=== PATIENT | male | born 1950 | race Caucasian/White ===

== ENCOUNTER 2018-02-07 14:00 | Outpatient (RCR) | payer MEDICARE, OTHER, SELFPAY ==
--- NOTE | 2017-11-16 12:02 | HP.PTEVAL_ITS ---
Patient's Visit Information LAURENT NEELY is a 66 year old M referred to Physical Therapy by Valentin Robertson MD with a diagnosis of Lumbar spinal stenosis, scoliosis. Date of Evaluation: 11/10/17 Physical Therapist: Clyde Ospina - Visit Plan Frequency: 2x /Week Duration: 4-6 Weeks Plan: Start with TA stabilization in aquatic setting. Progress HEP. Pt. had no directional preference this date, but trial flexion further next visit. Add in HS stretcing and hip flexor stretching as well. - Subjective Subjective: Pt. is here today for his initial evaluation with diagnosis of lumbar spinal stenosis. Pt. reports having back pain for a number of years, but recently he has been having increased symptoms. Pt. denies N/T in either LE. Pt. has no changes in B/B. Pt. did have an xray showing a marked amount of scoliosis and spinal stenosis. Pt. is now having to sleep in his reclining chair to start the night then is able to lie in bed. Pt. reports having increased pain getting out of bed in the morning and increased pain throughout the day. He has trialed ice and heat without positive results. Pt. reports no new muscle weakness in either LE as well. Pt. does complete a self prescribed pool exercises and light cardio exercises. Pt. is hopeful to reduce his symptoms in order to get back to all recreational activities with limitations. - Pain Lumbar spine Pain Intensity (Out of 10): 4 Pain Intensity Range: 2, 6 - Objective POSTURE: Pt. is over wt. Pt. has generalized flexed posture with FH. Pt. has no lateral shift, but does have lateral trunk lean with shoulder correction. Pt. has anterior tilt of pelvis as well. PALPATION: Pt. has increase increased pain with palpation of lumbar erector spinea generally throughout. Pt. has no pain in piriformis and no pain throughout bilateral iliac crests. Pt. has hypomobility with spring testing throughout lumbar spine, increased pain throughout as well. NEUROLOGICAL: Pt. has normal sensation of bilateral LEs to light and sharp touch. Pt. has normal 2+ patellar and achilles DTR bilaterally. Pt. is able to rise on heels and toes with out LOB, but does use balance aid. ROM: LUMBAR SPINE: flexion- mod loss increase NW, ext mod/max loss increase NW, SB R min loss increase NW, SB L min loss increase NW, rotation min loss bilat increase NW. Pt. has normal hip ROM bilaterally without increase in symptoms. Pt. has tightness noted throughout bilateral HS and hip flexor bilaterally. MMT : RLE- ankle 5/5 throughout; knee-ext 5-/5, flexionx 5-/5; hip- flexion 4/5, abd 4/5, ext 4/5. LLE- shiv 5/5 throughout; knee- ext 5-/5, flexion 5-/5, hip- flexion 4/5, abd 4/5, ext 4/5. Core strength- poor. GAIT: Pt. ambulates with generalized flexed posture, with increased lateral lean to L side during L stance phase. Pt. has increased pain with attempted to increase erect posture. STAIRS: Pt. is able to complete with reciprocal pattern but heavily uses BHR to complete. - Special Tests L/S Slump test left side: Negative L/S Slump test right side: Negative L/S Left Straight Leg Raise: Negative L/S Right Straight Leg Raise: Negative Lumbar Standing: Flexion - Mechanical Response: No effect Lumbar Standing: Flexion - Symptoms During Testing: Increases Lumbar Standing: Flexion - Symptoms After Testing: No worse Lumbar Standing: Extension - Mechanical Response: No effect Lumbar Standing: Extension - Symptoms During Testing: Increases Lumbar Standing: Extension - Symptoms After Testing: No worse Lumbar Standing: Right Side Glides - Mechanical Response: No effect Lumbar Standing: Right Side [place] - Symptoms During Testing: Increases Lumbar Standing: Right Side [place] - Symptoms After Testing: No worse Lumbar Standing: Left Side [place] - Mechanical Response: No effect Lumbar Standing: Left Side [place] - Symptoms During Testing: Increases Lumbar Standing: Left Side [place] - Symptoms After Testing: No worse Lumbar Lying: Flexion - Mechanical Response: No effect Lumbar Lying: Flexion - Symptoms During Testing: No effect Lumbar Lying: Flexion - Symptoms After Testing: No effect Lumbar Static: Slouched Sit - Mechanical Response: No effect Lumbar Static: Slouched Sit - Symptoms During Testing: No effect Lumbar Static: Slouched Sit - Symptoms After Testing: No effect Lumbar Static: Sitting Erect - Mechanical Response: No effect Lumbar Static: Sitting Erect - Symptoms During Testing: Increases Lumbar Static: Sitting Erect - Symptoms After Testing: No worse - Goals Goal 1:: Pt. to be I with HEP. Goal Time Frame: 4-6 Weeks Goal 2:: Pt. to have increased core and hip strength by 1/2 grade of all effected musculature to redcue stress on lumbar spine. Goal Time Frame: 4-6 Weeks Goal 3:: Pt. to have increased lumbar spine ROM by 25% in all directions without increase in symptoms. Goal Time Frame: 4-6 Weeks Goal 4:: Pt. to ambulate unlimited distances without increase in symptoms allowing for increased tolerance to all functional mobility. Goal Time Frame: 4-6 Weeks Goal 5:: Pt. sleep throughout the night without increase in symptoms allowing for icnreased quality of life. Goal Time Frame: 4-6 Weeks Goal 6:: Pt. to demonstrate improve posture throughout therapy session indicating increased postural awareness. Goal Time Frame: 4-6 Weeks - Rehabilitation Potential Physical Therapy Diagnosis: Pt. has signs and symptoms consistent with lumbar spinal stenosis. Pt. has increased pain with all end range motions of lumbar spine. Pt. has reduced core strength and hip strength. Pt. would benefit from PT to increase B hip and core strength, postural re-education/control and stratagies to reduce stress on lumbar spine with all fucntional mobility. Rehabilitation Potential: Good - Anticipated Interventions Patient/Client Instruction: Educate patient on: Condition, Plan of Care, Risk Factors, Benefits of Fitness Program For the Purpose of:: To improve health and function, To foster healthy habits, To improve decision making, To facilitate caregiver knowledge, To improve self management, To prevent re-injury, To improve ability to perform tasks related to life management, To improve tolerance to ADL's Therapeutic Exercise to Include: Strength training, Power training, Endurance training, Body mechanics, Postural training, Flexibilty training, In an aquatic setting, Passive ROM, Active ROM, Dynamic Lumbar Stabilization, Maddie Exercises For the Purpose of:: To decrease pain, To increase ROM, To improve nutrient delivery to tissue, To increase oxygenation perfusion, To improve muscle performance and motor function, To improve ability to perform ADL's, To increase tolerance to activity/condition/position, To improve gait and locomotor functions, To improve health of tissue, To decrease soft tissue restriction, To increase flexibility/ROM Manual Therapy Techniques to Include: Mobilization, Passive ROM, Functional dry needling, Soft tissue mobilization For the Purpose of:: To decrease pain, To decrease swelling/inflammation, To increase ROM IF ES: Yes Cryotherapy (ice pack, ice massage): Yes Thermo therapy (hot pack): Yes Ultrasound (thermal/non thermal): Yes For the Purpose of:: To decrease pain, To decrease swelling/inflammation, To increase ROM Thank you for the opportunity to evaluate your patient. For Medicare and Medicare HMO plans, please review the plan of care and approve it. It will need to be FAXED BACK to us at [phone] for Medicare purposes. Please let me know if there are questions or concerns regarding this plan of care. Physician Signature: Date:
--- NOTE | 2017-12-19 08:11 | HP.PTREVAL_ITS ---
Valentin Robertson MD, It has been my pleasure to treat LAURENT NEELY over the last 10 visits for Lumbar spinal stenosis, scoliosis. Please see the progress note below for an update on the physical therapy plan of care! Subjective: Pt. reports I am doing better, I still get some pain with longer driving, but overall improved. He reprots being 75% better overall. Pt. is doing HEP at home and is progressing with aquatic therapy. Pt. denies N/T in either LE. Objective/Function: Lumbar ROM- flexion min loss NE, ext mod loss increase NW, SB min loss to L, mod loss to R NE, rotation mod loss bilat increase NW. MMT: RLE- 5/5 throughout, except hip- flexion 4+/5, abd 4+/5 ext 4/5 Bilaterally. Pt. has poor+ core strength. He does report having difficulty with sleeping, having to start in his reclining chair then go to bed to increase better tolerance. He is most conserned with his ability to tolerate driving. He is able to drive 1-2 hours without symptoms, but longer distances bother him. Pt. has flexed posture and L lean with walking, but is able to increase his erect posture. Pt. denies N/T in either LE. Pt. would benefit from further PT to progress core strengthening, increase erect posture. Plan Plan: Pt. to be seen x4 visits in pool x1 week to progress to HEP, then x2 visits on land to progress gym exercises. Goals Goal 1:: Pt. to be I with HEP. Goal Time Frame: 4-6 Weeks Goal Progress: Progressing Goal 2:: Pt. to have increased core and hip strength by 1/2 grade of all effected musculature to redcue stress on lumbar spine. Goal Time Frame: 4-6 Weeks Goal Progress: Progressing Goal 3:: Pt. to have increased lumbar spine ROM by 25% in all directions without increase in symptoms. Goal Time Frame: 4-6 Weeks Goal Progress: Progressing Goal 4:: Pt. to ambulate unlimited distances without increase in symptoms allowing for increased tolerance to all functional mobility. Goal Time Frame: 4-6 Weeks Goal Progress: Progressing Goal 5:: Pt. sleep throughout the night without increase in symptoms allowing for icnreased quality of life. Goal Time Frame: 4-6 Weeks Goal Progress: Progressing Goal 6:: Pt. to demonstrate improve posture throughout therapy session indicating increased postural awareness. Goal Time Frame: 4-6 Weeks Goal Progress: Progressing Anticipated Interventions Patient/Client Instruction: Educate patient on: Condition, Plan of Care, Risk Factors, Benefits of Fitness Program For the Purpose of:: To improve health and function, To foster healthy habits, To improve decision making, To facilitate caregiver knowledge, To improve self management, To prevent re-injury, To improve ability to perform tasks related to life management, To improve tolerance to ADL's Therapeutic Exercise to Include: Strength training, Power training, Endurance training, Body mechanics, Postural training, Flexibilty training, In an aquatic setting, Passive ROM, Active ROM, Dynamic Lumbar Stabilization, Maddie Exercises For the Purpose of:: To decrease pain, To increase ROM, To improve nutrient delivery to tissue, To increase oxygenation perfusion, To improve muscle performance and motor function, To improve ability to perform ADL's, To increase tolerance to activity/condition/position, To improve gait and locomotor functions, To improve health of tissue, To decrease soft tissue restriction, To increase flexibility/ROM Manual Therapy Techniques to Include: Mobilization, Passive ROM, Functional dry needling, Soft tissue mobilization For the Purpose of:: To decrease pain, To decrease swelling/inflammation, To increase ROM IF ES: Yes Cryotherapy (ice pack, ice massage): Yes Thermo therapy (hot pack): Yes Ultrasound (thermal/non thermal): Yes For the Purpose of:: To decrease pain, To decrease swelling/inflammation, To increase ROM Please do not hesitate to contact me at [phone] by phone or Fax: if you have questions or concerns regarding this new plan of care! Sincerely, Clyde Ospina
--- NOTE | 2018-02-20 14:44 | HP.PTREVAL_ITS ---
Valentin Robertson MD, It has been my pleasure to treat LAURENT NEELY over the last 16 visits for Lumbar spinal stenosis, scoliosis. Please see the progress note below for an update on the physical therapy plan of care! Subjective: Pt. reports being 90% better overall. He is to have another injection later this month. He is driving without increase in symptoms. Pt. reports being I with land and water exercises. Objective/Function: ROM: flexion min loss NE, ext mod loss increase NW, SB min loss bilat NE, rotation min loss NE bilat. Pt. has tightness in B HS, but no increase in back pain. MMT: BLEs- 5/5 throughout, except 5-/5 hip abd and hip ext bilat. Core strength- fair-. Pt. ambulates without AD without adverse r eaction. Pt. is independent with all exercises both for land and aquatics now. Pt. is to trial exercises on own and follow up with PT if needed. Plan Plan: Pt. to trial exercsises on own for 2 weeks and follow up with PT if needed. I will DC case if I have not heard from patient in a few weeks. Goals Goal 1:: Pt. to be I with HEP. Goal Time Frame: 4-6 Weeks Goal Progress: Goal Met Goal 2:: Pt. to have increased core and hip strength by 1/2 grade of all effected musculature to redcue stress on lumbar spine. Goal Time Frame: 4-6 Weeks Goal Progress: Goal Met Goal 3:: Pt. to have increased lumbar spine ROM by 25% in all directions without increase in symptoms. Goal Time Frame: 4-6 Weeks Goal Progress: Goal Met Goal 4:: Pt. to ambulate unlimited distances without increase in symptoms allowing for increased tolerance to all functional mobility. Goal Time Frame: 4-6 Weeks Goal Progress: Goal Met Goal 5:: Pt. sleep throughout the night without increase in symptoms allowing for icnreased quality of life. Goal Time Frame: 4-6 Weeks Goal Progress: Goal Met Goal 6:: Pt. to demonstrate improve posture throughout therapy session indicating increased postural awareness. Goal Time Frame: 4-6 Weeks Goal Progress: Goal Met Anticipated Interventions Patient/Client Instruction: Educate patient on: Condition, Plan of Care, Risk Factors, Benefits of Fitness Program For the Purpose of:: To improve health and function, To foster healthy habits, To improve decision making, To facilitate caregiver knowledge, To improve self management, To prevent re-injury, To improve ability to perform tasks related to life management, To improve tolerance to ADL's Therapeutic Exercise to Include: Strength training, Power training, Endurance training, Body mechanics, Postural training, Flexibilty training, In an aquatic setting, Passive ROM, Active ROM, Dynamic Lumbar Stabilization, Maddie Exercises For the Purpose of:: To decrease pain, To increase ROM, To improve nutrient delivery to tissue, To increase oxygenation perfusion, To improve muscle performance and motor function, To improve ability to perform ADL's, To increase tolerance to activity/condition/position, To improve gait and locomotor functions, To improve health of tissue, To decrease soft tissue restriction, To increase flexibility/ROM Manual Therapy Techniques to Include: Mobilization, Passive ROM, Functional dry needling, Soft tissue mobilization For the Purpose of:: To decrease pain, To decrease swelling/inflammation, To increase ROM IF ES: Yes Cryotherapy (ice pack, ice massage): Yes Thermo therapy (hot pack): Yes Ultrasound (thermal/non thermal): Yes For the Purpose of:: To decrease pain, To decrease swelling/inflammation, To increase ROM Please do not hesitate to contact me at [phone] by phone or Fax: if you have questions or concerns regarding this new plan of care! Sincerely, Clyde Ospina
--- NOTE | 2018-05-01 16:58 | HP.PT.NRP ---
HP - Discharge Summary (1) - Patient Information LAURENT NEELY was seen in my office for initial evaluation on 11/10/17. The following Plan of Care was established for this patient: Initial Frequency: 2x /Week Initial Duration: 4-6 Weeks - Anticipated Interventions Patient/Client Instruction: Educate patient on: Condition, Plan of Care, Risk Factors, Benefits of Fitness Program For the Purpose of:: To improve health and function, To foster healthy habits, To improve decision making, To facilitate caregiver knowledge, To improve self management, To prevent re-injury, To improve ability to perform tasks related to life management, To improve tolerance to ADL's Therapeutic Exercise to Include: Strength training, Power training, Endurance training, Body mechanics, Postural training, Flexibilty training, In an aquatic setting, Passive ROM, Active ROM, Dynamic Lumbar Stabilization, Maddie Exercises For the Purpose of:: To decrease pain, To increase ROM, To improve nutrient delivery to tissue, To increase oxygenation perfusion, To improve muscle performance and motor function, To improve ability to perform ADL's, To increase tolerance to activity/condition/position, To improve gait and locomotor functions, To improve health of tissue, To decrease soft tissue restriction, To increase flexibility/ROM Manual Therapy Techniques to Include: Mobilization, Passive ROM, Functional dry needling, Soft tissue mobilization For the Purpose of:: To decrease pain, To decrease swelling/inflammation, To increase ROM IF ES: Yes Cryotherapy (ice pack, ice massage): Yes Thermo therapy (hot pack): Yes Ultrasound (thermal/non thermal): Yes For the Purpose of:: To decrease pain, To decrease swelling/inflammation, To increase ROM This patient was last seen in our office 02/07/18. Pertinent comments regarding their Physical therapy will appear below: Pt. was treated for his low back pain. Pt. was treated in aquatic setting and progressed to land exercises. Pt. had reported being 90% better overall. Pt. was to trial exercises on own and follow up with PT if needed. Pt. has not been seen in ~ 3 months and willbe DC from PT at this point in time. At this point I will be discontinuing this patient from physical therapy. I would be happy to see this patient again in the future if found appropriate by the physician. Thank you! Clyde Ospina, JORDI
== END 2018-02-07 19:00 | disposition home or self-care (01) ==
LOC: PT 14:00
PROVIDERS: Family Provider Preventive Medicine Occupational Medicine; PCP Preventive Medicine Occupational Medicine; Visit Provider Specialist
DX: M41.9 Scoliosis, unspecified (principal); M48.07 Spinal stenosis, lumbosacral region
CPT/HCPCS: 97110; 97113; 97162; 97530

== ENCOUNTER → 2018-03-23 22:19 | Outpatient (CLI) | payer MEDICARE, OTHER, SELFPAY | PROVIDERS: Family Provider Preventive Medicine Occupational Medicine; PCP Preventive Medicine Occupational Medicine; Visit Provider Internal Medicine Pulmonary Disease | DX: G47.33 Obstructive sleep apnea (adult) (pediatric) (principal) | CPT/HCPCS: 95810 ==

== ENCOUNTER → 2018-05-01 21:01 | Outpatient (CLI) | payer MEDICARE, OTHER, SELFPAY | DX: G47.33 Obstructive sleep apnea (adult) (pediatric) (principal) | CPT/HCPCS: 95811 ==

== ENCOUNTER 2019-04-08 12:00 | Outpatient (RCR) | payer MEDICARE, OTHER, SELFPAY | END 2019-04-09 23:59 | LOC: NS 12:00 | PROVIDERS: Visit Provider Preventive Medicine Occupational Medicine | DX: Z71.3 Dietary counseling and surveillance (principal); N18.3 Chronic kidney disease, stage 3 (moderate); E66.9 Obesity, unspecified; Z68.41 Body mass index [BMI] 40.0-44.9, adult | CPT/HCPCS: 97802; 97803 ==

== ENCOUNTER 2019-04-25 15:00 | Outpatient (RCR) | payer MEDICARE, OTHER, SELFPAY ==
--- NOTE | 2019-04-18 07:23 | HP.OTEVAL ---
Patient's Visit Information LAURENT NEELY is a 68 year old M, referred to Occupational Therapy by Esau Koroma DPM, with a diagnosis of lymphedema. Date of Evaluation: 04/17/19 Occupational Therapist: DENNY Mcgill/Stephen, CHT - Subjective Subjective: This 68 year old male was seen for OT eval with dx of LE edema- pt states he had swelling since about 2018. Pt states he can not get compression socks on or joaquim hose. Pt arived with a pair of copper compression socks-(box does not indicate what compression class they are) box also fits for shoe size not leg size. PT states prior to his blood clots he was doing pool exercises 3x a day. pt states he currently has been sleeping in a recliner for the past three weeks or so. pt has concerns with getting compression socks on his LE. - ADLs Dressing: Socks, Shoes - Lymphedema (Circumferential Measure) Mid-foot: right 26cm left 29cm Ankle: right 29cm left 32cm Lower calf: right 30 left 35cm Largest calf: right 44cm left 47cm Below knee: right 40cm left 43cm - Lower Limb Functional Index Lower Extremity Functional Score: 31 - Goals Demonstrate a 20% reduction in edema by d/c: Yes Demonstrate adequate knowledge of self-massage by 2nd week: Yes Demonstrate adequate knowledge skin care/prec by 2nd week: Yes Demonstrate adequate knowledge therapeutic exercises by d/c: Yes Select approp compression garment w/donning/care/wear by d/c: Yes Voice need to replace compression garment every 4-6mo by dc: Yes - Rehabilitation General Assessment: pt demo with swelling in LE- more in right than left- pt brought a pair of compression socks in but therapist could not find what compression value was on socks or box they came in. per pt he can not get them on his legs- pt demo need skilled OT services 2-3 visits to ed. pt on lymphedema mtg and use of compression socks- Today therapist ed. pt on lymph system, identification of compression socks, using compression of 20-30mmHg. Rehabilitation Potential: Good - Anticipated Interventions Anticipated Interventions: Education re Diagnosis, Manual Lymph Drainage, Education re Life-long lymphedema Management, Education re Skin Care and Precautions, Education re Self Massage Techniques, Education re Correct Donning Tech,Care&Wearing Sched Comp Garments, Home Program - Visit Plan TEXT: Thank you for the opportunity to evaluate your patient. For Medicare and Medicare HMO plans, please review the plan of care and approve it. It will need to be FAXED BACK to us at [phone] for Medicare purposes. Please let me know if there are questions or concerns regarding this plan of care. Physician Signature: Date:
--- NOTE | 2019-10-03 16:45 | HP.OTDCSUM ---
It has been my pleasure to treat LAURENT NEELY under orders from Dr. Esau Koroma, DPM, for the diagnosis of lymphedema for a total of 2 visit(s). Please see the following information for a summary of their discharge status. PT was seen for two OT visits- therapist ed. pt on donning doffing of compression socks with use of gloves to assist in getting a multicraft operator of the socks. pt dem understanding- therapist ed. pt on ex. and gave handout on them- pt demo understanding. Pt to cont with self mtg of lymphedema pt demo understanding and agree with POC. Patient Goals: Learn how to Manage Lymphedema, Learn how to Apply Compression Stockings Demonstrate a 20% reduction in edema by d/c: Yes Demonstrate adequate knowledge of self-massage by 2nd week: Yes Demonstrate adequate knowledge skin care/prec by 2nd week: Yes Demonstrate adequate knowledge therapeutic exercises by d/c: Yes Select approp compression garment w/donning/care/wear by d/c: Yes Voice need to replace compression garment every 4-6mo by dc: Yes If there are questions or concerns regarding this patient's occupational therapy, please fell free to call me at [phone]. Thank you for the referral of this patient. Sincerely, Lydia Mancuso, OTR/L, CHT
== END 2019-04-25 19:00 | disposition home or self-care (01) ==
LOC: OT 15:00
PROVIDERS: Family Provider Preventive Medicine Occupational Medicine; PCP Preventive Medicine Occupational Medicine; Referring Provider Podiatrist Foot & Ankle Surgery; Visit Provider Podiatrist Foot & Ankle Surgery
DX: I89.0 Lymphedema, not elsewhere classified (principal); I87.2 Venous insufficiency (chronic) (peripheral)
CPT/HCPCS: 97110; 97166; 97530

== ENCOUNTER 2019-05-06 13:30 | Outpatient (RCR) | payer MEDICARE, OTHER, SELFPAY ==
[2017-04-25 16:15] VITALS: BMI 40.4
== END 2019-05-10 23:59 ==
LOC: NS 13:30
PROVIDERS: Family Provider Preventive Medicine Occupational Medicine; PCP Preventive Medicine Occupational Medicine; Visit Provider Preventive Medicine Occupational Medicine
DX: Z71.3 Dietary counseling and surveillance (principal); N18.3 Chronic kidney disease, stage 3 (moderate); E66.9 Obesity, unspecified; Z68.41 Body mass index [BMI] 40.0-44.9, adult
CPT/HCPCS: 97803

== ENCOUNTER 2019-06-03 14:45 | Outpatient (RCR) | payer MEDICARE, OTHER, SELFPAY ==
[2017-04-25 16:15] VITALS: BMI 40.4
== END 2019-06-08 23:59 ==
LOC: NS 14:45
PROVIDERS: Family Provider Preventive Medicine Occupational Medicine; PCP Preventive Medicine Occupational Medicine; Visit Provider Preventive Medicine Occupational Medicine
DX: Z71.3 Dietary counseling and surveillance (principal); N18.3 Chronic kidney disease, stage 3 (moderate); E66.9 Obesity, unspecified; Z68.41 Body mass index [BMI] 40.0-44.9, adult
CPT/HCPCS: 97803

== ENCOUNTER 2019-07-08 11:51 | Outpatient (RCR) | payer MEDICARE, OTHER, SELFPAY ==
[2017-04-25 16:15] VITALS: BMI 40.4
== END 2019-07-08 23:59 | disposition home or self-care (01) ==
LOC: NS 11:51
PROVIDERS: Family Provider Preventive Medicine Occupational Medicine; PCP Preventive Medicine Occupational Medicine; Visit Provider Preventive Medicine Occupational Medicine
DX: Z71.3 Dietary counseling and surveillance (principal); E66.9 Obesity, unspecified; Z68.41 Body mass index [BMI] 40.0-44.9, adult; N18.3 Chronic kidney disease, stage 3 (moderate)
CPT/HCPCS: 97803

== ENCOUNTER 2020-07-29 10:35 | Outpatient (RCR) | payer MEDICARE, OTHER, SELFPAY | END 2020-08-07 23:59 | LOC: NS 10:35 | PROVIDERS: PCP Preventive Medicine Occupational Medicine; Visit Provider Preventive Medicine Occupational Medicine | DX: Z71.3 Dietary counseling and surveillance (principal); E66.09 Other obesity due to excess calories; Z68.41 Body mass index [BMI] 40.0-44.9, adult; N18.30 Chronic kidney disease, stage 3 unspecified; R73.03 Prediabetes | CPT/HCPCS: 97802 ==

== ENCOUNTER 2020-08-25 14:00 | Outpatient (RCR) | payer MEDICARE, OTHER, SELFPAY ==
[2017-04-25 16:15] VITALS: BMI 40.4
== END 2020-09-07 23:59 ==
LOC: NS 14:00
PROVIDERS: PCP Preventive Medicine Occupational Medicine; Visit Provider Preventive Medicine Occupational Medicine
DX: Z71.3 Dietary counseling and surveillance (principal); E66.09 Other obesity due to excess calories; Z68.41 Body mass index [BMI] 40.0-44.9, adult; N18.30 Chronic kidney disease, stage 3 unspecified; R73.03 Prediabetes
CPT/HCPCS: 97803

== ENCOUNTER 2020-10-01 13:30 | Outpatient (RCR) | payer MEDICARE, OTHER, SELFPAY ==
[2017-04-25 16:15] VITALS: BMI 40.4
== END 2020-10-07 23:59 ==
LOC: NS 13:30
PROVIDERS: PCP Preventive Medicine Occupational Medicine; Visit Provider Preventive Medicine Occupational Medicine
DX: Z71.3 Dietary counseling and surveillance (principal); E66.09 Other obesity due to excess calories; Z68.41 Body mass index [BMI] 40.0-44.9, adult; N18.30 Chronic kidney disease, stage 3 unspecified; R73.03 Prediabetes
CPT/HCPCS: 97803

== ENCOUNTER 2020-10-06 16:00 | Outpatient (RCR) | payer MEDICARE, OTHER, SELFPAY ==
--- NOTE | 2020-04-13 14:02 | HP.PTEVAL_ITS ---
Patient's Visit Information LAURENT NEELY is a 69 year old M referred to Physical Therapy by Dr. Sadi Little DO with a diagnosis of L/S DDD. Date of Evaluation: 04/13/20 Physical Therapist: Charli Lacey, PT, ATC - Visit Plan Frequency: 2x /Week Duration: 4-6 Weeks Plan: Postural edu, SKTC/DKTC, core stab ex's, nustep, and HEP. Will consider transitioning to water when leg wounds heal. - Subjective Pt reports he has had LBP for a chronic period of time. Pt reports in the 60's, he was diagnosed with scoliosis and has had pain ever since. Pt reports this episode occurred 6 weeks ago when he had a flu bug and notes he vomited so violently that he injured a rib. Pt notes he has had chiro and PT in the past. Pt reports aquatic therapy is one thing that has helped him a lot in the past. Pt reports he was having PT prior to [facility], and is now ready to get back into this program again. No tingling or numbness in in LE's. Pt reports sleep difficulty at this time secondary to pain. Pt had recent xrays and an MRI which revealed the scoliosis is getting worse and he may need surgery in the future. 3/10 pain at rest, 10/10 pain at its worst - Pain LBP Pain Intensity (Out of 10): 3 Pain Intensity Range: 10 - Objective Neuro: B LE sensation is WNL to light touch. B patellar reflex= 1/3. MMT: L LE is grossly 4-/5 throughout. R LE is grossly 4+/5. ROM: Pt is moderately limited with extension. Pt is WNL with all other measurements. Gait. Pt is able to ambulate 680 feet until needing to sit down and rest. - Goals Goal 1:: Decrease LBP x 25 % to aid with sleep Goal Time Frame: 4-6 Weeks Goal 2:: Increase B LE strength x 1 grade to aid with ambulation Goal Time Frame: 4-6 Weeks Goal 3:: Pt will be able to ambulate greater than 1000 feet to aid with community ambulation Goal Time Frame: 4-6 Weeks Goal 4:: I with HEP Goal Time Frame: 4-6 Weeks - Rehabilitation Potential Physical Therapy Diagnosis: Pt has LBP, LE weakness, and limitations with ambulation secondary to deg. changes in the L/S Rehabilitation Potential: Good - Anticipated Interventions Patient/Client Instruction: Educate patient on: Condition, Plan of Care For the Purpose of:: To improve self management Therapeutic Exercise to Include: Strength training, Endurance training, Body mechanics, Postural training, Flexibilty training, Gait and locomotor training, Dynamic Lumbar Stabilization For the Purpose of:: To decrease pain, To improve muscle performance and motor function Thermo therapy (hot pack): Yes For the Purpose of:: To decrease pain Thank you for the opportunity to evaluate your patient. For Medicare and Medicare HMO plans, please review the plan of care and approve it. It will need to be FAXED BACK to us at [phone] for Medicare purposes. For Medicare only, by signing this I certify the plan of care. Please let me know if there are questions or concerns regarding this plan of care. Physician Signature: Date:
--- NOTE | 2020-04-30 12:36 | HP.PTREVAL_ITS ---
Dr. Sadi Little, DO, It has been my pleasure to treat LAURENT NEELY over the last 6 visits for L/S DDD. Please see the progress note below for an update on the physical therapy plan of care! Subjective: My back pain was bad until i took tylenol today Objective/Function: LBP ranges from 4-7/10. B LE strength is grossly 4/5 t hroughout. Pt is able to ambulate 680 feet until fatigued and wanting to sit. Pt is progressing well toward Rx goals Plan Plan: Transition to aquatic therapy program to concentrate on LE and core strengthening Goals Goal 1:: Decrease LBP x 25 % to aid with sleep Goal Time Frame: 4-6 Weeks Goal Progress: Progressing Goal 2:: Increase B LE strength x 1 grade to aid with ambulation Goal Time Frame: 4-6 Weeks Goal Progress: Progressing Goal 3:: Pt will be able to ambulate greater than 1000 feet to aid with community ambulation Goal Time Frame: 4-6 Weeks Goal Progress: Progressing Goal 4:: I with HEP Goal Time Frame: 4-6 Weeks Anticipated Interventions Patient/Client Instruction: Educate patient on: Condition, Plan of Care For the Purpose of:: To improve self management Therapeutic Exercise to Include: Strength training, Endurance training, Body mechanics, Postural training, Flexibilty training, Gait and locomotor training, Dynamic Lumbar Stabilization For the Purpose of:: To decrease pain, To improve muscle performance and motor function Thermo therapy (hot pack): Yes For the Purpose of:: To decrease pain Please do not hesitate to contact me at [phone] by phone or if you have questions or concerns regarding this new plan of care! Sincerely, Charli Lacey, PT, ATC
--- NOTE | 2020-06-04 18:37 | HP.PTREVAL ---
Dr. Sadi Little, DO, It has been my pleasure to treat LAURENT NEELY over the last 15 visits for L/S DDD. Please see the progress note below for an update on the physical therapy plan of care! Subjective: Pt reports he fell on the ice last week. Objective/Function: MMT: R LE grossly 4/5, L LE grossly 4+/5. LBP rated at 4 out of 10, 5/10 at worst. Gait: Pt is able to ambulate 680 feet until becoming fatigued and needing to rest. Pt is progressing well at this time. Plan Plan: Cont to progress PT. 1 appt on land and 1 aquatic therapy appt per week for for weeks. concentrate on LE and core strengthening. Goals Goal 1:: Decrease LBP x 25 % to aid with sleep Goal Time Frame: 4-6 Weeks Goal Progress: Progressing Goal 2:: Increase B LE strength x 1 grade to aid with ambulation Goal Time Frame: 4-6 Weeks Goal Progress: Progressing Goal 3:: Pt will be able to ambulate greater than 1000 feet to aid with community ambulation Goal Time Frame: 4-6 Weeks Goal Progress: Progressing Goal 4:: I with HEP Goal Time Frame: 4-6 Weeks Anticipated Interventions Patient/Client Instruction: Educate patient on: Condition, Plan of Care For the Purpose of:: To improve self management Therapeutic Exercise to Include: Strength training, Endurance training, Body mechanics, Postural training, Flexibilty training, Gait and locomotor training, Dynamic Lumbar Stabilization For the Purpose of:: To decrease pain, To improve muscle performance and motor function Thermo therapy (hot pack): Yes For the Purpose of:: To decrease pain Please do not hesitate to contact me at [phone] by phone or if you have questions or concerns regarding this new plan of care! Sincerely, Charli Lacey, PT, ATC
--- NOTE | 2020-07-07 16:52 | HP.PTREVAL ---
Dr. Sadi Little, DO, It has been my pleasure to treat LAURENT NEELY over the last 24 visits for L/S DDD. Please see the progress note below for an update on the physical therapy plan of care! Subjective: Pt reports mild pain, mostly just stiffness Objective/Function: B LE MMT 5/5 throughout with exception to L knee flex and hip flex= 4-/5. LBP now 1/10. Pt is now able to ambulate 1000 feet until needing to rest from LBP. Pt is showing great gains at this time Plan Plan: Cont to progress Goals Goal 1:: Decrease LBP x 25 % to aid with sleep Goal Time Frame: 4-6 Weeks Goal Progress: Progressing Goal 2:: Increase B LE strength x 1 grade to aid with ambulation Goal Time Frame: 4-6 Weeks Goal Progress: Progressing Goal 3:: Pt will be able to ambulate greater than 1000 feet to aid with community ambulation Goal Time Frame: 4-6 Weeks Goal Progress: Goal Met Goal 4:: I with HEP Goal Time Frame: 4-6 Weeks Anticipated Interventions Patient/Client Instruction: Educate patient on: Condition, Plan of Care For the Purpose of:: To improve self management Therapeutic Exercise to Include: Strength training, Endurance training, Body mechanics, Postural training, Flexibilty training, Gait and locomotor training, Dynamic Lumbar Stabilization For the Purpose of:: To decrease pain, To improve muscle performance and motor function Thermo therapy (hot pack): Yes For the Purpose of:: To decrease pain Please do not hesitate to contact me at [phone] by phone or if you have questions or concerns regarding this new plan of care! Sincerely, Charli Lacey, PT, ATC
--- NOTE | 2020-08-06 13:43 | HP.PTREVAL ---
Dr. Sadi Little, DO, It has been my pleasure to treat LAURENT NEELY over the last 33 visits for L/S DDD. Please see the progress note below for an update on the physical therapy plan of care! Subjective: I am sore from the rain today. I just saw the doctor and he wants me to continue with land and water. Objective/Function: LBP is 2/10 this date. Still has difficulty with sleeping. B LE strength 4+/5. Pt is able to ambulate 1000 feet until needing to rest Plan Plan: Cont with land and aquatic therapy Goals Goal 1:: Decrease LBP x 25 % to aid with sleep Goal Time Frame: 4-6 Weeks Goal Progress: Progressing Goal 2:: Increase B LE strength x 1 grade to aid with ambulation Goal Time Frame: 4-6 Weeks Goal Progress: Progressing Goal 3:: Pt will be able to ambulate greater than 1000 feet to aid with community ambulation Goal Time Frame: 4-6 Weeks Goal Progress: Goal Met Goal 4:: I with HEP Goal Time Frame: 4-6 Weeks Goal Progress: Progressing Goal 5:: Pt will ambulate greater than 1300 feet to aid with community ambulation. Goal Progress: New goal Anticipated Interventions Patient/Client Instruction: Educate patient on: Condition, Plan of Care For the Purpose of:: To improve self management Therapeutic Exercise to Include: Strength training, Endurance training, Body mechanics, Postural training, Flexibilty training, Gait and locomotor training, Dynamic Lumbar Stabilization For the Purpose of:: To decrease pain, To improve muscle performance and motor function Thermo therapy (hot pack): Yes For the Purpose of:: To decrease pain Please do not hesitate to contact me at [phone] by phone or if you have questions or concerns regarding this new plan of care! Sincerely, Charli Lacey, PT, ATC
--- NOTE | 2020-10-06 17:00 | HP.PTDCSUM ---
It has been my pleasure to treat LAURENT NEELY referred by Dr. Sadi Little DO, with the diagnosis of L/S DDD for a total of 48 visit(s). Discharge Date: Please see the following information for a summary of their discharge status. Subjective: Pt feels ready for discharge at this time because he is I with HEP LBP Pain Intensity (Out of 10): 2 % Improvement: 70 Objective/Function: LBP is now 2/10. Pt can ambulate greater than 1000 feet until needing to rest. B LE strength is grossly 4/5. Pt is I with HEP. Rx goals achieved Goal 1:: Decrease LBP x 25 % to aid with sleep Goal Progress: Goal Met Goal 2:: Increase B LE strength x 1 grade to aid with ambulation Goal Progress: Progressing Goal 3:: Pt will be able to ambulate greater than 1000 feet to aid with community ambulation Goal Progress: Goal Met Goal 4:: I with HEP Goal Progress: Goal Met Goal 5:: Pt will ambulate greater than 1300 feet to aid with community ambulation. Goal Progress: Goal Met Plan: Discharge to HEP If there are questions or concerns regarding this patient's physical therapy, please feel free to call me at [phone]. Thank you for the referral of this patient. Sincerely, Charli Lacey, PT, ATC
== END 2020-10-06 19:00 | disposition home or self-care (01) ==
LOC: PT 16:00
PROVIDERS: PCP Preventive Medicine Occupational Medicine; Referring Provider Orthopaedic Surgery; Visit Provider Orthopaedic Surgery
DX: M47.26 Other spondylosis with radiculopathy, lumbar region (principal); M51.36 Other intervertebral disc degeneration, lumbar region
CPT/HCPCS: 97110; 97113; 97161; 97164

== ENCOUNTER 2020-10-19 13:58 | Outpatient (RCR) | payer MEDICARE, OTHER, SELFPAY ==
[2017-04-25 16:15] VITALS: BMI 40.4
== END 2020-11-07 23:59 ==
LOC: NS 13:58
PROVIDERS: PCP Preventive Medicine Occupational Medicine; Visit Provider Preventive Medicine Occupational Medicine
DX: Z71.3 Dietary counseling and surveillance (principal); E66.09 Other obesity due to excess calories; Z68.41 Body mass index [BMI] 40.0-44.9, adult
CPT/HCPCS: 97803

== ENCOUNTER 2020-12-08 10:30 | Outpatient (RCR) | payer MEDICARE, OTHER, SELFPAY ==
[2017-04-25 16:15] VITALS: BMI 40.4
== END 2020-12-08 23:59 ==
LOC: NS 10:30
PROVIDERS: PCP Preventive Medicine Occupational Medicine; Visit Provider Preventive Medicine Occupational Medicine
DX: Z71.3 Dietary counseling and surveillance (principal); E66.09 Other obesity due to excess calories; Z68.41 Body mass index [BMI] 40.0-44.9, adult; R73.03 Prediabetes; N18.30 Chronic kidney disease, stage 3 unspecified
CPT/HCPCS: 97803

== ENCOUNTER 2025-03-31 10:30 | Outpatient (RCR) | payer MEDICARE, SELFPAY ==
--- NOTE | 2025-02-17 11:46 | HP.PTEVAL ---
Patient's Visit Information Visit Information Visit Information: LAURENT NEELY is a 74 year old M referred to Physical Therapy by Dr. Arian Paz DO with a diagnosis of Fall at home and abnormal gait. Date of Evaluation: 02/17/25 Physical Therapist: MARQUEZ Luna Visit Plan Frequency: 2x /Week Duration: 6 Weeks Plan: Goes by [place] 2X/ week for 4-6 weeks for functional transfers (sit to stand and curb steps), balance (head turns and changing directions), foam balance work, functional strength with HEP Subjective Subjective: Pt fell in front of a cell phone store in [place] 3 weeks ago (the curb step was 8 inches instead of 6 inches) and he fell FW and brused both his knees, shins, forehead and did x-rays with no injuries...just sore. He could not get his socks on because he was so swollen due to the fall on his lower legs. He was given some Triston wraps and elevated them and that helped. He did not have his cane with him the day he fell. He only uses the cane when it is bad weather or certain instances. He has not had any other falls for awhile. He has steps at home and has a railing and can go either recip or step two pattern. said to go to PT to help strengthen his legs to help recover from internal bruising and not get clots in his legs. He is on a blood thinner. He struggles to get out of low chairs. Objective Objective: Gait: walks with shorter stride, flexed trunk, uses a cane at time, Heel and toe raises: able to raise heels 1/2 normal ROM and toes not much at all. Sit to stand: able to get up on first attempt without using his arms LE MMT: R hip flex 14.5 and L 10.9 R knee ext 19.8 and L 12.8 R knee flex 11 and L 9.4 FGA: 11 CATSIB: 59 (does not feel safe with eyes closed and not on foam) Balance/Special Test Scores Functional Gait Assessment Score: 11 % Disability: 63.3400 CATSIB Score (Max score 120 seconds): 59 Lower Extremity Functional Score: 38 Goals Goal 1:: I HEP Goal Time Frame: 6-8 Weeks Goal 2:: Increase balance (FGA was 11 at eval) Goal Time Frame: 6-8 Weeks Goal 3:: Increase balance (CATSIB 59 on eval) Goal Time Frame: 6-8 Weeks Goal 4:: Be able to step up onto a curb step with AD 10/10 times Goal Time Frame: 6-8 Weeks Goal 5:: Be able to step over hurdles with least restrictive device Rehabilitation Potential Rehabilitation Potential: Good Anticipated Interventions Patient/Client Instruction: Educate patient on: Condition and Plan of Care For the Purpose of:: To decrease pain, To improve muscle performance and motor function, To improve ability to perform ADL's, To increase tolerance to activity/condition/position, To improve performance and independence with ADL's, To improve ability of physical actions for home/community/work/leisure, To improve gait and locomotor functions, To improve endurance, To improve balance and To improve safety with gait Therapeutic Exercise to Include: Strength training, Endurance training, Balance training, Postural training, Gait and locomotor training and Active ROM For the Purpose of:: To decrease pain, To improve nutrient delivery to tissue, To improve muscle performance and motor function, To improve ability to perform ADL's, To increase tolerance to activity/condition/position, To improve ability of physical actions for home/community/work/leisure, To improve gait and locomotor functions, To improve endurance, To improve balance and To improve safety with gait Functional Training to Include: Gait training For the Purpose of:: To improve gait and locomotor functions and To improve safety with gait Text: Thank you for the opportunity to evaluate your patient. For Medicare and Medicare HMO plans, please review the plan of care and approve it. It will need to be FAXED BACK to us at [phone] for Medicare purposes. For Medicare only, by signing this I certify the plan of care. Please let me know if there are questions or concerns regarding this plan of care. Physician Signature: Date:
--- NOTE | 2025-03-31 11:16 | HP.PTDCSUM ---
Discharge Summary D/C summary: It has been my pleasure to treat LAURENT NEELY referred by Dr. Arian Paz DO, with the diagnosis of Fall at home and abnormal gait for a total of 7 visit(s). Discharge Date: 03/31/25 Please see the following information for a summary of their discharge status. Subjective Subjective: Pt is in between Cataract surgeries and not allowed to do any exercises until done with that. Pt has not had any falls. 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 He needs to do his water therapy on a regular basis. Pt would like to postone his balance testing due to his vision being off. Overall Improvement % Improvement: 80 Objective Objective/Function: Pt could not exercises due to eye surgery but states that he did fine out in the gym stepping over hurdles and curb steps etc. Goals Goal 1:: I HEP Goal Progress: Progressing Goal 2:: Increase balance (FGA was 11 at eval) Goal 3:: Increase balance (CATSIB 59 on eval) Goal 4:: Be able to step up onto a curb step with AD 10/10 times Goal 5:: Be able to step over hurdles with least restrictive device Plan Plan: DC PT D/C Information Discharge Comments: DC PT d/c sentence: If there are questions or concerns regarding this patient's physical therapy, please feel free to call me at [phone]. Thank you for the referral of this patient. Sincerely, Jo Adkins, MPT Balance/Gait/Functional tests Balance/Special Test Scores Functional Gait Assessment Score: 11 % Disability: 63.3400 CATSIB Score (Max score 120 seconds): 59 Lower Extremity Functional Score: 55 Improvement % Improvement: 80
== END 2025-03-31 13:50 | disposition home or self-care (01) ==
LOC: PT 10:30
PROVIDERS: PCP Preventive Medicine Occupational Medicine; Referring Provider Student in an Organized Health Care Education/Training Program; Visit Provider Student in an Organized Health Care Education/Training Program
DX: R26.9 Unspecified abnormalities of gait and mobility (principal); Z91.81 History of falling
CPT/HCPCS: 97110; 97161; 97530